=== PATIENT | female | born 1975 | race Caucasian/White ===

== ENCOUNTER 2019-04-22 20:05 | Emergency (ER) | payer MEDICAID ==
[~2019-04-22] VITALS: Ht 160 cm; Wt 72.6 kg
[2019-04-22 20:05] VITALS: BP 130/80
[~2019-04-22 20:05] MED LIST: ALBU0.0912 IH; GLIP5TAB4 PO; HUM SUBQ; LANTUS SUBQ
--- NOTE | 2019-04-22 20:08 | NUR ---
TO LOBBY A/W BED AMBULATORY
--- NOTE | 2019-04-22 21:21 | NUR ---
PT AMBULATED TO BED 11 WITH SPOUSE
--- NOTE | 2019-04-22 21:52 | NUR ---
43 YO F BIB SELF PRESENTS TO ED C/O 12/16 THROBBING [place] WITH GENERALIZED BODY ACHES, UPPER/LOWER BACK PAIN SINCE FRIDAY. ALSO REPORTS NV SINCE FRIDAY. REPORTS NAUSEA TODAY, NO VOMITING. PT ALSO C/O MILD RIGHT SIDE ABD PAIN. PT STATES "I USUALLY GET HEADACHES WHEN MY BLOOD SUGAR IS HIGH". -- PT AWAKE, A/O X 4. CALM, COOPERATIVE. BEHAVIOR AGE APPROPRIATE. ANSWERS QUESTIONS IN CLEAR, FULL SENTENCES. -- SKIN WARM, DRY, COLOR APPROPRIATE FOR ETHNICITY. BREATHING EVEN, UNLABORED. -- ABD IS SOFT, FLAT, NO DISTENTION/TENDERNESS NOTED. PMH-- DM, HEPATITIS C, DEPRESSION ACCUCHECK-- 213
[2019-04-22] MEDS ORDERED: ONDANSETRON 4 MG/2 ML VIAL IVP ONE (22:00)
[2019-04-22] MEDS ORDERED: NACL 0.9% 1,000 ML IV ONE (22:00)
[2019-04-22 22:17] LABS: BASOPHILS % (AUTO) 0.4 % (0.0-2.0); EOSINOPHILS % (AUTO) 0.4 % (0.0-4.0); HEMATOCRIT 39.3 % (36-48); HEMOGLOBIN 13.6 g/dL (12.0-16.0); LYMPHOCYTES # (AUTO) 1.1 K/uL (2.5-16.5); LYMPHOCYTES % (AUTO) 23.1 % (20.5-51.1); MEAN CORPUSCULAR HEMOGLOBIN 31 pg (27-31); MEAN CORPUSCULAR HGB CONC 35 g/dL (33-37); MEAN CORPUSCULAR VOLUME 90.3 fL (80-94); MONOCYTES # (AUTO) 0.4 K/uL (0.8-1.0); MONOCYTES % (AUTO) 8.3 % (1.7-9.3); NEUTROPHILS # (AUTO) 3.3 K/uL (1.8-7.7); NEUTROPHILS % (AUTO) 67.8 % (42.2-75.2); PLATELET COUNT (AUTO) 208 K/uL (140-450); RED BLOOD CELL COUNT(AUTO) 4.35 MIL/uL (4.20-5.40); RED CELL DISTRIBUTION WIDTH 11.9 % (11.6-13.7); WHITE BLOOD COUNT (AUTO) 4.8 K/uL (4.8-10.8)
--- NOTE | 2019-04-22 22:20 | NUR ---
PT RECEIVED 4 MG IVP ZOFRAN AND FLUID BOLUS FOR N/V. WILL REASSESS.
--- NOTE | 2019-04-22 22:45 | NUR ---
PT REPORTS NO NAUSEA. ZOFRAN EFFECTIVE. C/O 12/[address] DAY MADE AWARE.
[2019-04-22 22:47] LABS: ALBUMIN 2.8 g/dL (3.4-5.0); ANION GAP 12.9 (8-16); CARBON DIOXIDE 24.2 mmol/L (21-32); CREATININE 0.6 mg/dL (0.6-1.3); POTASSIUM 3.1 mmol/L (3.5-5.1); TOTAL BILIRUBIN 0.6 mg/dL (0.0-1.0)
[2019-04-22] MEDS ORDERED: KETOROLAC 30 MG/ML VIAL IM/IVP ONE (23:10)
--- NOTE | 2019-04-22 23:15 | NUR ---
PT MEDICATED WITH 30 MG IVP TORADOL. WILL REASSESS.
--- NOTE | 2019-04-23 | NUR ---
PT RESTING COMFORTABLY IN BED WITH EYES CLOSED. AROUSABLE TO LIGHT SHAKING, VERBAL STIMULI. REPORTS RELIEF IN PAIN; 5/10. PT STATES SHE FEELS BETTER.
[2019-04-23 00:18] VITALS: BP 121/76
--- NOTE | 2019-04-23 00:18 | NUR ---
Patient discharged with v/s stable. Written and verbal after care instructions given and explained. Patient alert, oriented and verbalized understanding of instructions. Ambulatory with steady gait. All questions addressed prior to discharge. ID band removed. Patient advised to follow up with PMD. Rx of Zofran and Ibuprofen 600 mg given. Patient educated on indication of medication including possible reaction and side effects. Opportunity to ask questions provided and answered.
== END 2019-04-23 00:18 | disposition home or self-care (01) ==
LOC: MED 20:05
DX: B34.9 Viral infection, unspecified (principal); R11.2 Nausea with vomiting, unspecified; M79.10 Myalgia, unspecified site; J45.909 Unspecified asthma, uncomplicated; E11.9 Type 2 diabetes mellitus without complications; Z90.49 Acquired absence of other specified parts of digestive tract; Z79.4 Long term (current) use of insulin; Z79.899 Other long term (current) drug therapy
CPT/HCPCS: 36415; 80053; 83690; 85025; 96361; 96374; 96375; 99283; J1885; J2405; J7030

== ENCOUNTER 2023-04-21 01:40 | Emergency (ER) | payer MEDICAID ==
[~2023-04-21] VITALS: Ht 152.4 cm; Wt 74.8 kg
[~2023-04-21 01:40] MED LIST changes: +GLIP5TAB14 PO; -GLIP5TAB4 PO
[2023-04-21 01:48] VITALS: BP 175/102; PULSE 91; RESP 18; TEMP 97.7; O2SAT 99
[2023-04-21] MEDS ORDERED: MORPHINE SULFATE 2 MG/ML SYR IVP STA (02:06)
[2023-04-21] MEDS ORDERED: NACL 0.9% 2,000 ML IV ONE (02:10)
[2023-04-21 02:21] LABS: BILIRUBIN,URINE NEGATIVE (NEGATIVE); BLOOD, URINE 1+ (NEGATIVE); LEUKOCYTE ESTERASE ,URINE NEGATIVE (NEGATIVE); NITRITE, URINE POSITIVE (NEGATIVE); PROTEIN,URINE 3+ (NEGATIVE); UGLUCOSE 3+ (NEGATIVE); UROBILINOGEN,URINE 0.2 EU/dL (0.2 - 1)
[2023-04-21 02:22] LABS: APPEARANCE,URINE SLIGHTLY CLOUDY (CLEAR); COLOR,URINE YELLOW (YELLOW)
[2023-04-21 02:34] LABS: BASOPHILS # (AUTO) 0.1 K/uL (0.00-0.22); BASOPHILS % (AUTO) 0.7 % (0.0-2.0); EOSINOPHILS # (AUTO) 0.2 K/uL (0-0.4); EOSINOPHILS % (AUTO) 2.9 % (0.0-4.0); HEMATOCRIT 35.1 % (36-48); HEMOGLOBIN 12.2 g/dL (12.0-16.0); LYMPHOCYTES # (AUTO) 2.2 K/uL (2.5-16.5); LYMPHOCYTES % (AUTO) 29.2 % (20.5-51.1); MEAN CORPUSCULAR HEMOGLOBIN 31 pg (27-31); MEAN CORPUSCULAR HGB CONC 35 g/dL (33-37); MEAN CORPUSCULAR VOLUME 88.7 fL (80-94); MONOCYTES # (AUTO) 0.6 K/uL (0.8-1.0); MONOCYTES % (AUTO) 8.2 % (1.7-9.3); NEUTROPHILS # (AUTO) 4.4 K/uL (1.8-7.7); PLATELET COUNT (AUTO) 360 K/uL (140-450); RED BLOOD CELL COUNT(AUTO) 3.96 MIL/uL (4.20-5.40); RED CELL DISTRIBUTION WIDTH 12.3 % (11.6-13.7); WHITE BLOOD COUNT (AUTO) 7.5 K/uL (4.8-10.8)
[2023-04-21 02:35] LABS: RBC,URINE 0-5 /HPF (0-5)
[2023-04-21 02:36] LABS: BACTERIA,URINE 3+ /HPF (None Seen); MUCUS,URINE None Seen /LPF (None Seen); SQUAMOUS EPITHELIAL CELL,UR 0-3 (FEW) /LPF (0-3 (FEW)); WBC,URINE 0-5 /HPF (0-5)
[2023-04-21 02:42] LABS: ALANINE AMINOTRANSFERASE 26 U/L (12-78); ALBUMIN 1.6 g/dL (3.4-5.0); ALKALINE PHOSPHATASE 126 U/L (50-136); ASPARTATE AMINOTRANSFERASE 20 U/L (15-37); CALCIUM 7.8 mg/dL (8.5-10.1); CARBON DIOXIDE 29.6 mmol/L (21-32); CHLORIDE 97 mmol/L (98-107); CREATININE 1.2 mg/dL (0.6-1.3); GFR ARICAN-AMERICAN 61 mL/min (>90); GFR NON ARICAN-AMERICAN 51 mL/min (>90); POTASSIUM 3.6 mmol/L (3.5-5.1); SODIUM SERUM 129 mmol/L (136-145); TOTAL BILIRUBIN 0.2 mg/dL (0.0-1.0); TOTAL PROTEIN, SERUM 5.7 g/dL (6.4-8.2); UREA NITROGEN, BLOOD 17 mg/dL (7-18)
[2023-04-21 02:44] LABS: GLUCOSE 545 mg/dL (74-106)
[2023-04-21 02:45] LABS: ACETONE, SERUM Small (NEGATIVE)
[2023-04-21] MEDS ORDERED: ACETAMINOPHEN EXTRA STRENGTH 500 MG TAB PO ONE (03:15)
[2023-04-21] MEDS ORDERED: INSULIN REGULAR, HUMAN 100 UNIT/ML VIAL IVP ONE (03:20)
[2023-04-21] MEDS ORDERED: cefTRIAXone 1,000 MG VIAL ONE (03:22)
[2023-04-21 03:39] LABS: LACTIC ACID 0.8 mmol/L (0.4-2.0)
[2023-04-21 03:45] LABS: AMPHETAMINE, URINE POSITIVE ng/ml (NEG <=1000); BARBITURATE, URINE NEGATIVE ng/ml (NEG <=200); BENZODIAZEPINE, URINE NEGATIVE ng/mL (NEG <=200); CANNABINOID, URINE POSITIVE ng/mL (NEG <=50); COCAINE, URINE NEGATIVE ng/mL (NEG <=300); OPIATE, URINE NEGATIVE ng/mL (NEG <=2000); PHENCYCLIDINE SCREEN,URINE NEGATIVE ng/mL (NEG <=25)
[2023-04-21] MEDS ORDERED: ACET-10509 PO (04:17)
[2023-04-21] MEDS ORDERED: CEPH-588 PO (04:17)
[2023-04-21 04:24] VITALS: BP 149/75; PULSE 89; RESP 12; O2SAT 100
[2023-04-22] MEDS ORDERED: DIPH25TA53 PO (18:27)
== END 2023-04-21 05:00 | disposition home or self-care (01) ==
LOC: MED 01:40
DX: E11.65 Type 2 diabetes mellitus with hyperglycemia (principal); N39.0 Urinary tract infection, site not specified; F15.10 Other stimulant abuse, uncomplicated; J45.909 Unspecified asthma, uncomplicated; Z79.899 Other long term (current) drug therapy; Z79.4 Long term (current) use of insulin
CPT/HCPCS: 36415; 80053; 80305; 81001; 82009; 82803; 83605; 85025; 87040; 87086; 96361; 96365; 96375; 99284; J0696; J1815; J2270; J7030

== ENCOUNTER 2023-04-22 14:21 | Emergency (ER) | payer MEDICAID ==
[~2023-04-22] VITALS: Ht 160 cm; Wt 76.2 kg
[~2023-04-22 14:21] MED LIST changes: +ACET-10509 PO; +CEPH-588 PO
[2023-04-22 14:37] VITALS: BP 142/80; PULSE 94; RESP 20; TEMP 98.6; O2SAT 98
[2023-04-22] MEDS ORDERED: PROCHLORPERAZINE 10 MG/2 ML VIAL IM ONE (16:10)
[2023-04-22] MEDS ORDERED: KETOROLAC 30 MG/ML VIAL IM ONE (16:10)
[2023-04-22] MEDS ORDERED: diphenhydrAMINE 50 MG CAP PO ONE (16:10)
[2023-04-22] MEDS ORDERED: DIPH25TA53 PO (18:27)
== END 2023-04-22 18:36 | disposition home or self-care (01) ==
LOC: MED 14:21
DX: G43.909 Migraine, unspecified, not intractable, without status migrainosus (principal); H10.13 Acute atopic conjunctivitis, bilateral; J45.909 Unspecified asthma, uncomplicated; E11.9 Type 2 diabetes mellitus without complications; I10 Essential (primary) hypertension; F12.90 Cannabis use, unspecified, uncomplicated; F15.90 Other stimulant use, unspecified, uncomplicated; Z79.899 Other long term (current) drug therapy; Z79.2 Long term (current) use of antibiotics; Z79.4 Long term (current) use of insulin; Z88.1 Allergy status to other antibiotic agents
CPT/HCPCS: 71045; 93005; 96372; 99284; J0780; J1885; Q0092; Q0163

== ENCOUNTER 2023-07-20 06:22 | Emergency (ER) | payer MEDICAID ==
[~2023-07-20] VITALS: Ht 160 cm; Wt 77.1 kg
[~2023-07-20 06:22] MED LIST changes: +DIPH25TA53 PO; -GLIP5TAB14 PO; +GLIP5TAB24 PO
[2023-07-20 06:28] VITALS: BP 193/96; PULSE 91; RESP 20; TEMP 98; O2SAT 98
[2023-07-20] MEDS: KETOROLAC 30 MG/ML VIAL IM ONE (06:54)
[2023-07-20] MEDS ORDERED: CEPH-588 PO (07:24)
[2023-07-20] MEDS ORDERED: IBUP-2213 PO (07:24)
[2023-07-20 07:59] VITALS: BP 175/89; PULSE 91; RESP 20; TEMP 98; O2SAT 98
== END 2023-07-20 07:59 | disposition home or self-care (01) ==
LOC: MED 06:22
DX: L03.312 Cellulitis of back [any part except buttock and flank] (principal); J45.909 Unspecified asthma, uncomplicated; E11.9 Type 2 diabetes mellitus without complications; I10 Essential (primary) hypertension; Z79.4 Long term (current) use of insulin; Z79.899 Other long term (current) drug therapy
CPT/HCPCS: 81002; 81025; 96372; 99283; J1885

== ENCOUNTER 2023-07-29 11:17 | Emergency (ER) | payer MEDICAID ==
[~2023-07-29] VITALS: Ht 160 cm; Wt 77.1 kg
[~2023-07-29 11:17] MED LIST changes: +IBUP-2213 PO
[2023-07-29 11:29] VITALS: BP 167/96; PULSE 96; RESP 20; TEMP 99.6; O2SAT 98
[2023-07-29 12:48] LABS: FLU B ANTIGEN NEGATIVE (NEGATIVE)
[2023-07-29 12:49] LABS: FLU A ANTIGEN POSITIVE (NEGATIVE)
[2023-07-29] MEDS ORDERED: PROM118S5 PO (13:35)
[2023-07-29] MEDS ORDERED: ALBU0.0912 IH (13:35)
[2023-07-29] MEDS ORDERED: TAM75 PO (13:35)
== END 2023-07-29 13:55 | disposition home or self-care (01) ==
LOC: MED 11:17
DX: J10.1 Influenza due to other identified influenza virus with other respiratory manifestations (principal); Z20.822 Contact with and (suspected) exposure to COVID-19; J45.909 Unspecified asthma, uncomplicated; E11.9 Type 2 diabetes mellitus without complications; I10 Essential (primary) hypertension; Z79.899 Other long term (current) drug therapy; Z79.4 Long term (current) use of insulin; Z88.1 Allergy status to other antibiotic agents
CPT/HCPCS: 71045; 99284